=== PATIENT | male | born 1985 | race Caucasian/White ===

== ENCOUNTER 2024-12-02 02:41 | Emergency (ER) | payer MEDICAID ==
[~2024-12-02] VITALS: Ht 193 cm; Wt 88.6 kg
[~2024-12-02 02:41] MED LIST: BISM-64 PO; HYDR-4383 PO; NO HOME MEDS; OMEP20TA43 PO; PROC-8 PO
[2024-12-02] MEDS ORDERED: IBUP-1984 PO (03:40)
[2024-12-02] MEDS: ibuprofen tablet 400 MG TABLET PO ONE (03:53)
[2024-12-02] MEDS: acetaminophen 325mg tablet PO ONE (03:54)
[2024-12-02 03:59] VITALS: BP 125/80; PULSE 82; RESP 16; TEMP 98; O2SAT 98
== END 2024-12-02 04:04 | disposition home or self-care (01) ==
LOC: ER 02:42
DX: S06.0X0A Concussion without loss of consciousness, initial encounter (principal); F17.210 Nicotine dependence, cigarettes, uncomplicated; Y90.9 Presence of alcohol in blood, level not specified; V47.5XXA Car driver injured in collision with fixed or stationary object in traffic accident, initial encounter; Y93.89 Activity, other specified; Y92.415 Exit ramp or entrance ramp of street or highway as the place of occurrence of the external cause; Y99.8 Other external cause status
CPT/HCPCS: 99283